=== PATIENT | female | born 1950 | race Caucasian/White ===

== ENCOUNTER 2022-06-02 17:03 | Observation (INO) ==
[2022-06-02] MEDS ORDERED: PROVENTIL NEB TX 0.083% 2.5MG/ 3ML ONE (19:28)
[2022-06-02 19:55] LABS: BASOPHILS # (AUTO) 0.1 X10^3/uL (0.0-0.1); BASOPHILS % (AUTO) 0.6 % (0.2-1.0); EOSINOPHILS # (AUTO) 0.2 x10^3/uL (0.0-0.2); EOSINOPHILS % (AUTO) 1.5 % (0.9-2.9); HEMATOCRIT 34.2 % (36.0-47.0); LYMPHOCYTES # (AUTO) 2.3 X10^3/uL (1.3-2.9); LYMPHOCYTES % (AUTO) 21.9 % (21.0-51.0); MEAN CORPUSCULAR HEMOGLOBIN 29.5 pg (27.0-34.0); MEAN CORPUSCULAR HGB CONC 35.2 g/dL (33.0-35.0); MEAN CORPUSCULAR VOLUME 83.8 fL (80.0-100.0); MEAN PLATELET VOLUME 6.6 fL (7.4-11.0); MONOCYTES % (AUTO) 9.3 % (0.0-13.0); NEUTROPHILS % (AUTO) 66.7 % (42.0-75.0); RED BLOOD COUNT 4.09 X10^6/uL (3.5-5.4); RED CELL DISTRIBUTION WIDTH 14.5 % (11.6-16.5); WHITE BLOOD COUNT 10.5 X10^3/uL (3.6-10.0)
[2022-06-02 20:09] LABS: ALANINE AMINOTRANSFERASE 21 Units/L (12-78); ALBUMIN 3.3 g/dL (3.4-5.0); ALKALINE PHOSPHATASE 104 Units/L (46-116); ASPARTATE AMINO TRANSFERASE 18 Units/L (15-37); BLOOD UREA NITROGEN 10 mg/dL (7-18); CALCIUM 8.7 mg/dL (8.5-10.1); CARBON DIOXIDE 26.5 mmol/L (21-32); CHLORIDE 100 mmol/L (98-107); COR CA(FOR HYPOALB) 9.3 mg/dL (8.5-10.1); COR NA(FOR HYPERGLY) 137 mmol/L (136-145); CREATININE 1.13 mg/dL (0.55-1.02); SODIUM 136 mmol/L (136-145); TOTAL PROTEIN 7.3 g/dL (6.4-8.2); eGFR NON BLACK RACES 50 (>60)
[2022-06-02] MEDS: PROVENTIL NEB TX 0.083% 2.5MG/ 3ML NEB SCH (20:15)
[2022-06-02] MEDS ORDERED: SALINE 3% 15 ML NEB TX NEB ONE (20:15)
[2022-06-02] MEDS: PULMICORT NEB TX 0.5 MG NEB SCH (20:15)
[2022-06-02] MEDS ORDERED: NS 1/2 1,000 ML IV 1,000 ML IV ONE (20:27)
[2022-06-02] MEDS: TESSALON PERLES PO SCH (21:11)
[2022-06-02] MEDS: NS 1/2 1,000 ML IV 1,000 ML IV SCH (21:11)
[2022-06-02] MEDS: ROBITUSSIN DM PO SCH (21:12)
[2022-06-02] MEDS: VSL#3 PO SCH (21:12)
[2022-06-02] MEDS: TUSSIONEX PENNKINETIC SUSP PO SCH (21:12)
[2022-06-02] MEDS ORDERED: LEVAQUIN PREMIX IV 500 MG 500 MG/100 ML BAG IV SCH (22:00)
--- NOTE | 2022-06-02 22:17 | RAD ---
HISTORYPNEUMONIASTUDYCHEST, PA/LAT ADULTCOMPARISONJanuary 2019TECHNIQUEPA and lateral projections, 2 imagesFINDINGSCardiac silhouette is normal in size and configuration.Pulmonary vascular sizes are normal.No effusion.No focal airspace disease.No pneumothorax.No acute osseous abnormalityIMPRESSIONNo imaging findings of acute cardiopulmonary disease.Electronically signed by: John Miller (Jun 02, 2022 22:15:28)
[2022-06-03 01:09] VITALS: BMI 30.9
[2022-06-03] MEDS ORDERED: NS 100 ML IV 100 ML ONE (05:27)
[2022-06-03] MEDS: TESSALON PERLES PO SCH ×3 (05:53→20:59)
[2022-06-03 06:40] LABS: ALANINE AMINOTRANSFERASE 15 Units/L (12-78); ALBUMIN 2.7 g/dL (3.4-5.0); ALKALINE PHOSPHATASE 87 Units/L (46-116); ASPARTATE AMINO TRANSFERASE 15 Units/L (15-37); BLOOD UREA NITROGEN 9 mg/dL (7-18); CALCIUM 8.4 mg/dL (8.5-10.1); CARBON DIOXIDE 27.7 mmol/L (21-32); CHLORIDE 101 mmol/L (98-107); COR CA(FOR HYPOALB) 9.4 mg/dL (8.5-10.1); CREATININE 0.92 mg/dL (0.55-1.02); SODIUM 135 mmol/L (136-145); TOTAL PROTEIN 6.3 g/dL (6.4-8.2); eGFR NON BLACK RACES > 60 (>60)
--- NOTE | 2022-06-03 07:16 | CT ---
HISTORYChronic cough, shortness of breathSTUDYCT chest with contrastTechnique: Axial post-contrast images with coronal and sagittal reformats. Dose reduction procedures were used with mA/kv adjusted for body size.COMPARISONNoneFINDINGSExamination of the mediastinum demonstrated a 1.5 by 1 cm right thyroid lobe nodule which should be further evaluated sonographically. No mediastinal or hilar adenopathy of significance is identified. No significant aortic abnormality is identified. There is a small hiatal hernia present. No pleural effusions are identified. No chest wall or axillary abnormality is identified. Those portions of the upper abdominal organs visualized were within normal limits with the exception of what appears to represent multiple enhancing splenic lesions.. These could be real findings and represent hemangiomas or could be flow anomalies. Splenic ultrasound is recommended for further evaluation. Examination of the lung colon demonstrated no significant masses, alveolar infiltrates, areas of consolidation, significant peribronchial thickening, or bronchiectasis. There is a focus of subsegmental atelectasis in the left lung base. Tiny subpleural pulmonary nodules identified on CT series 10, image 43 on the right this can be followed in 1 year.IMPRESSIONNo acute infiltrate2 mm subpleural right lung pulmonary nodule best visualized on CT series 10, image 43. Follow-up chest CT in 1 year is recommendedSmall hiatal hernia1.5 x 1 cm right thyroid lobe nodule requiring further evaluation with thyroid sonography.Electronically signed by: NELSON SALEH (Jun 03, 2022 07:15:23)
[2022-06-03 07:52] LABS: BASOPHILS # (AUTO) 0.1 X10^3/uL (0.0-0.1); BASOPHILS % (AUTO) 0.6 % (0.2-1.0); EOSINOPHILS # (AUTO) 0.2 x10^3/uL (0.0-0.2); EOSINOPHILS % (AUTO) 2.3 % (0.9-2.9); HEMATOCRIT 30.1 % (36.0-47.0); LYMPHOCYTES # (AUTO) 1.9 X10^3/uL (1.3-2.9); LYMPHOCYTES % (AUTO) 20.3 % (21.0-51.0); MEAN CORPUSCULAR HGB CONC 36.5 g/dL (33.0-35.0); MEAN CORPUSCULAR VOLUME 98.7 fL (80.0-100.0); MEAN PLATELET VOLUME 6.7 fL (7.4-11.0); MONOCYTES # (AUTO) 0.9 x10^3/uL (0.3-0.8); MONOCYTES % (AUTO) 9.9 % (0.0-13.0); NEUTROPHILS # (AUTO) 6.1 x10^3/uL (2.2-4.8); NEUTROPHILS % (AUTO) 66.9 % (42.0-75.0); RED BLOOD COUNT 3.05 X10^6/uL (3.5-5.4); RED CELL DISTRIBUTION WIDTH 14.6 % (11.6-16.5); WHITE BLOOD COUNT 9.1 X10^3/uL (3.6-10.0)
[2022-06-03] MEDS ORDERED: PULMICORT NEB TX 0.5 MG NEB ONE (07:56)
[2022-06-03] MEDS ORDERED: PROVENTIL NEB TX 0.083% 2.5MG/ 3ML ONE (07:56)
[2022-06-03] MEDS: PROVENTIL NEB TX 0.083% 2.5MG/ 3ML NEB SCH ×4 (08:03→21:00)
[2022-06-03] MEDS: PULMICORT NEB TX 0.5 MG NEB SCH ×2 (08:03→20:59)
[2022-06-03] MEDS: ROBITUSSIN DM PO SCH ×4 (09:26→20:37)
[2022-06-03] MEDS: TUSSIONEX PENNKINETIC SUSP PO SCH ×2 (09:26→20:37)
[2022-06-03] MEDS: VSL#3 PO SCH (09:27)
--- NOTE | 2022-06-03 12:49 | DR.UPDATE ---
H&P Update History and Physical Update: History and Physical reviewed and patient examined. Changes noted: Yes with the following: WAS ADMITTED FOR TREATMENT OF BRONCHOPNEUMONIA, PERSISTENT COUGH. PATIENT REPORTS HAVING PRODUCTIVE COUGH, CHEST CONGESTION, CHEST TIGHTNESS, WHEEZING RIB PAIN, DIZZINESS, AND WEAKNESS FOR THE PAST TWO MONTHS. SHE HAS TAKEN CEFDINIR 300MG PO BID X 10 DAYS, LEVAQUIN 500MG DAILY X 10 DAYS, CIPRO 500MG PO BID X 7 DAYS, PREDNISONE TAPER WITHOUT IMPROVEMENT IN SYMPTOMS. SHE HAS ALSO HAD MULTIPLE INJECTIONS IN THE OFFICE. WE ADMITTED PATIENT FOR FURTHER EVALUATION AND TREATMENT. ON ARRIVAL, VITALS WERE: 97.7-100-20-97%-135/67. LABS WERE OBTAINED. WBC 10.5, HGB 12.0, HCT 34.2, SODIUM 136, POTASSIUM 3.7, CHLORIDE 100, BUN 10, CREATININE 1.13, GLUCOSE 123, AST 18, ALT 21, ALK PHOS 104, TOTAL PROTEIN 7.3, ALBUMIN 3.3. COVID, INFLUENZA, AND RSV NEGATIVE. BLOOD AND SPUTUM CULTURES WERE SET UP. A CHEST CT WITH CONTRAST WAS OBTAINED. IT REVEALED: Examination of the mediastinum demonstrated a 1.5 by 1 cm right thyroid lobe nodule which should be further evaluated sonographically. No mediastinal or hilar adenopathy of significance is identified. No significant aortic abnormality is identified. There is a small hiatal hernia present. No pleural effusions are identified. No chest wall or axillary abnormality is identified. Those portions of the upper abdominal organs visualized were within normal limits with the exception of what appears to represent multiple enhancing splenic lesions. These could be real findings and represent hemangiomas or could be flow anomalies. Splenic ultrasound is recommended for further evaluation. Examination of the lung colon demonstrated no significant masses, alveolar infiltrates, areas of consolidation, significant peribronchial thickening, or bronchiectasis. There is a focus of subsegmental atelectasis in the left lung base. Tiny subpleural pulmonary nodules identified on CT series 10, image 43 on the right this can be followed in 1 year. SHE WAS STARTED ON NORMAL SALINE AT 75 ML/HR, LEVAQUIN 750MG IV Q48H, TUSSIONEX 5ML PO Q12H, ROBITUSSIN DM 10ML PO QID, PULMICORT NEBS BID, PROVENTIL NEBS QID, ROBITUSSIN DM 10ML PO QID, TESSALON PERLES 200MG PO TID, AND HER HOME MEDICATIONS WITH THE EXCEPTION OF THE [place] WERE RESUMED. ULTRASOUND IS DOWN UNTIL NEXT WEEK, THEREFORE, WE WILL OBTAIN OUTPATIENT THYROID AND SPLEENIC ULTRASOUNDS ON AN OUTPATIENT BASIS DUE TO CT CONCERNS. OTHERWISE WE WILL FOLLOW-UP WITH AM LABS AND CONTINUE TO MONITOR. TIME SPENT ON CLINICAL ASSESSMENT, REVIWING LABS AND IMAGING, DECISION MAKING, AND DOCUMENTATION GREATER THAN 75 MINUTES.
[2022-06-03] MEDS: NS 1/2 1,000 ML IV 1,000 ML IV SCH ×2 (13:28→20:40)
[2022-06-03] MEDS: CRESTOR TAB 10 MG PO SCH (20:37)
[2022-06-03] MEDS: SINGULAIR TAB 10 MG PO SCH (20:38)
[2022-06-03] MEDS ORDERED: NS 1/2 1,000 ML IV 1,000 ML IV ONE (20:39)
[2022-06-04] MEDS: ROBITUSSIN DM PO SCH ×4 (01:45→21:12)
[2022-06-04] MEDS: TESSALON PERLES PO SCH ×3 (05:42→21:11)
[2022-06-04 06:25] LABS: BASOPHILS % (AUTO) 0.4 % (0.2-1.0); EOSINOPHILS # (AUTO) 0.2 x10^3/uL (0.0-0.2); HEMATOCRIT 28.7 % (36.0-47.0); HEMOGLOBIN 10.4 g/dL (12.0-16.0); LYMPHOCYTES # (AUTO) 2.3 X10^3/uL (1.3-2.9); LYMPHOCYTES % (AUTO) 22.6 % (21.0-51.0); MEAN CORPUSCULAR HEMOGLOBIN 38.4 pg (27.0-34.0); MEAN CORPUSCULAR HGB CONC 36.4 g/dL (33.0-35.0); MEAN CORPUSCULAR VOLUME 105.6 fL (80.0-100.0); MONOCYTES # (AUTO) 0.9 x10^3/uL (0.3-0.8); MONOCYTES % (AUTO) 9.2 % (0.0-13.0); NEUTROPHILS # (AUTO) 6.5 x10^3/uL (2.2-4.8); NEUTROPHILS % (AUTO) 65.8 % (42.0-75.0); RED BLOOD COUNT 2.72 X10^6/uL (3.5-5.4); RED CELL DISTRIBUTION WIDTH 14.3 % (11.6-16.5); WHITE BLOOD COUNT 9.9 X10^3/uL (3.6-10.0)
[2022-06-04 06:27] LABS: ALANINE AMINOTRANSFERASE 17 Units/L (12-78); ALBUMIN 2.8 g/dL (3.4-5.0); ALKALINE PHOSPHATASE 83 Units/L (46-116); ASPARTATE AMINO TRANSFERASE 16 Units/L (15-37); BLOOD UREA NITROGEN 8 mg/dL (7-18); CALCIUM 8.4 mg/dL (8.5-10.1); CARBON DIOXIDE 26.9 mmol/L (21-32); CHLORIDE 102 mmol/L (98-107); COR CA(FOR HYPOALB) 9.4 mg/dL (8.5-10.1); CREATININE 0.92 mg/dL (0.55-1.02); SODIUM 135 mmol/L (136-145); TOTAL PROTEIN 6.2 g/dL (6.4-8.2); eGFR NON BLACK RACES > 60 (>60)
[2022-06-04 06:56] LABS: PLATELET MORPHOLOGY COMMENT NORMAL (NORMAL)
[2022-06-04] MEDS ORDERED: NS 1/2 1,000 ML IV 1,000 ML IV ONE ×2 (08:05→23:59)
[2022-06-04] MEDS: PULMICORT NEB TX 0.5 MG NEB SCH ×2 (08:09→20:00)
[2022-06-04] MEDS: PROVENTIL NEB TX 0.083% 2.5MG/ 3ML NEB SCH ×4 (08:09→20:00)
[2022-06-04] MEDS: NS 1/2 1,000 ML IV 1,000 ML IV SCH ×3 (08:30→23:58)
[2022-06-04] MEDS: VSL#3 PO SCH (08:31)
[2022-06-04] MEDS: TUSSIONEX PENNKINETIC SUSP PO SCH ×2 (08:31→21:10)
[2022-06-04] MEDS: LEVAQUIN PREMIX IV 750 MG 750 MG/150 ML BAG IV SCH (08:31)
--- NOTE | 2022-06-04 10:24 | PCM.PROG ---
Progress Note Progress Note for Day of Date of Exam: 06/04/22 Subjective Subjective: PT IS A 72 YEAR OLD FEMALE ADMITTED FOR TREATMENT OF BRONCHOPNEUMONIA, PERSISTENT COUGH AFTER FAILING EXTENSIVE OUTPATIENT TREATMENT. THIS MORNING SHE IS RESTING IN BED COMFORTABLY. SHE REPORTS SOME IMPROVEMENT IN HER BREATHING AND SYMPTOMS. NO ACUTE EVENTS OVERNIGHT. LABS/IMAGING: WBC 9.9, HGB 10.4, PLT 328, NA 135, K 4.1, CREATININE 0.92, GLUCOSE 96, BLOOD AND SPUTUM CULTURES WERE SET UP. A CHEST CT WITH CONTRAST WAS OBTAINED. IT REVEALED: Examination of the mediastinum demonstrated a 1.5 by 1 cm right thyroid lobe nodule which should be further evaluated sonographically. No mediastinal or hilar adenopathy of significance is identified. No significant aortic abnormality is identified. There is a small hiatal hernia present. No pleural effusions are identified. No chest wall or axillary abnormality is identified. Those portions of the upper abdominal organs visualized were within normal limits with the exception of what appears to represent multiple enhancing splenic lesions. These could be real findings and represent hemangiomas or could be flow anomalies. Splenic ultrasound is recommended for further evaluation. Examination of the lung colon demonstrated no significant masses, alveolar infiltrates, areas of consolidation, significant peribronchial thickening, or bronchiectasis. There is a focus of subsegmental atelectasis in the left lung base. Tiny subpleural pulmonary nodules identified on CT series 10, image 43 on the right this can be followed in 1 year. SHE IS CURRENTLY RECEIVING NORMAL SALINE AT 75 ML/HR, LEVAQUIN 750MG IV Q48H, TUSSIONEX 5ML PO Q12H, ROBITUSSIN DM 10ML PO QID, PULMICORT NEBS BID, PROVENTIL NEBS QID, ROBITUSSIN DM 10ML PO QID, TESSALON PERLES 200MG PO TID, AND HER HOME MEDICATIONS WITH THE EXCEPTION OF THE [place] WERE RESUMED. ULTRASOUND IS DOWN UNTIL NEXT WEEK, THEREFORE, WE WILL OBTAIN OUTPATIENT THYROID AND SPLEENIC ULTRASOUNDS ON AN OUTPATIENT BASIS DUE TO CT CONCERNS. OTHERWISE WE WILL FOLLOW-UP WITH AM LABS AND CONTINUE TO MONITOR. TIME SPENT ON CLINICAL ASSESSMENT, REVIWING LABS AND IMAGING, DECISION MAKING, AND DOCUMENTATION GREATER THAN 45 MINUTES. Past Medical Family Social History Past Med/Fam/Surg Hx: No changes since H&P Allergies: Allergies No Known Drug Allergies Allergy (Verified 08/29/20 08:18) Review of Systems ROS: No change since H&P Vital Signs and I&O's Vital Signs: Temperature 97.8 F Pulse Rate [Brachial] 70 Pulse Rate 82 Respiratory Rate 18 Blood Pressure [Right Arm] 169/77 Blood Pressure [Left Arm] 158/68 Blood Pressure 186/81 O2 Sat by Pulse Oximetry 98 Intake and Output: Intake & Output 06/01/22 06/02/22 06/03/22 06/04/22 23:59 23:59 23:59 23:59 Intake Total 275 / 275 1807 / 1807 150 / 150 Balance 275 / 275 1807 / 1807 150 / 150 Physical Exam Oriented: Normal Eyes: Normal Nose: Normal Throat: Normal Respiratory: Rhonchi Cardiovascular: Normal Palpation: Normal Tenderness: Normal Skin: Normal Musculoskeletal: Normal Psychiatric: Normal Mood Description: Calm Speech Pattern: Clear and Appropriate Laboratory and Diagnostics Result Diagrams: 06/04/22 05:39 06/04/22 05:39 Labs: 06/02/22 20:45 Sputum - Expectorated Sputum Sputum Culture - Final 06/02/22 20:45 Sputum - Expectorated Sputum - Final 06/02/22 19:44 Blood Blood Culture - Preliminary 06/02/22 19:40 Blood Blood Culture - Preliminary Laboratory WBC 9.9 X10^3/uL (3.6-10.0) 06/04/22 05:39 RBC 2.72 X10^6/uL (3.5-5.4) L 06/04/22 05:39 Hgb 10.4 g/dL (12.0-16.0) L 06/04/22 05:39 Hct 28.7 % (36.0-47.0) L 06/04/22 05:39 MCV 105.6 fL (80.0-100.0) H 06/04/22 05:39 MCH 38.4 pg (27.0-34.0) H 06/04/22 05:39 MCHC 36.4 g/dL (33.0-35.0) H 06/04/22 05:39 RDW 14.3 % (11.6-16.5) 06/04/22 05:39 Plt Count 328 X10^3/uL (150.0-450.0) 06/04/22 05:39 Plt Count Comment Adequate (ADEQUATE) 06/04/22 05:39 MPV 7.0 fL (7.4-11.0) L 06/04/22 05:39 Neut % (Auto) 65.8 % (42.0-75.0) 06/04/22 05:39 Lymph % (Auto) 22.6 % (21.0-51.0) 06/04/22 05:39 [place] % (Auto) 9.2 % (0.0-13.0) 06/04/22 05:39 Eos % (Auto) 2.0 % (0.9-2.9) 06/04/22 05:39 Baso % (Auto) 0.4 % (0.2-1.0) 06/04/22 05:39 Neut # (Auto) 6.5 x10^3/uL (2.2-4.8) H 06/04/22 05:39 Lymph # (Auto) 2.3 X10^3/uL (1.3-2.9) 06/04/22 05:39 [place] # (Auto) 0.9 x10^3/uL (0.3-0.8) H 06/04/22 05:39 Eos # (Auto) 0.2 x10^3/uL (0.0-0.2) 06/04/22 05:39 Baso # (Auto) 0.0 X10^3/uL (0.0-0.1) 06/04/22 05:39 Absolute Nucleated RBC 0.1 /100WBC 06/04/22 05:39 Plt Morphology Comment Normal (NORMAL) 06/04/22 05:39 RBC Morphology Abnormal (NORMAL) A 06/04/22 05:39 Macrocytosis 1+ A 06/04/22 05:39 Sodium 135 mmol/L (136-145) L 06/04/22 05:39 Corrected Sodium TNP 06/04/22 05:39 Potassium 4.1 mmol/L (3.5-5.1) 06/04/22 05:39 Chloride 102 mmol/L (98-107) 06/04/22 05:39 Carbon Dioxide 26.9 mmol/L (21-32) 06/04/22 05:39 BUN 8 mg/dL (7-18) 06/04/22 05:39 Creatinine 0.92 mg/dL (0.55-1.02) 06/04/22 05:39 Est GFR (MDRD) Af Amer > 60 (>60) 06/04/22 05:39 Est GFR (MDRD) Non-Af > 60 (>60) 06/04/22 05:39 Glucose 96 mg/dL (65-99) 06/04/22 05:39 Calcium 8.4 mg/dL (8.5-10.1) L 06/04/22 05:39 Corrected Calcium 9.4 mg/dL (8.5-10.1) 06/04/22 05:39 Total Bilirubin 0.20 mg/dL (0.2-1.0) 06/04/22 05:39 AST 16 Units/L (15-37) 06/04/22 05:39 ALT 17 Units/L (12-78) 06/04/22 05:39 Alkaline Phosphatase 83 Units/L (46-116) 06/04/22 05:39 Total Protein 6.2 g/dL (6.4-8.2) L 06/04/22 05:39 Albumin 2.8 g/dL (3.4-5.0) L 06/04/22 05:39 Globulin 3.4 g/dL (2.5-4.5) 06/04/22 05:39 Albumin/Globulin Ratio 0.8 Ratio (1.1-2.1) L 06/04/22 05:39 SARS-CoV-2 (PCR) Negative (NEGATIVE) 06/02/22 21:28 Influenza Type A (PCR) Negative (NEGATIVE) 06/02/22 21:28 Influenza Type B (PCR) Negative (NEGATIVE) 06/02/22 21:28 RSV (PCR) Negative (NEGATIVE) 06/02/22 21:28 Plan (1) Bronchopneumonia: Status: Acute Plan: IV abx
[2022-06-04] MEDS: SINGULAIR TAB 10 MG PO SCH (21:10)
[2022-06-04] MEDS: CRESTOR TAB 10 MG PO SCH (21:12)
[2022-06-05] MEDS: TESSALON PERLES PO SCH ×3 (05:22→21:47)
[2022-06-05] MEDS: NS 1/2 1,000 ML IV 1,000 ML IV SCH ×3 (05:22→17:14)
[2022-06-05 06:11] LABS: BASOPHILS # (AUTO) 0.1 X10^3/uL (0.0-0.1); BASOPHILS % (AUTO) 0.7 % (0.2-1.0); EOSINOPHILS # (AUTO) 0.2 x10^3/uL (0.0-0.2); EOSINOPHILS % (AUTO) 1.8 % (0.9-2.9); HEMATOCRIT 28.8 % (36.0-47.0); HEMOGLOBIN 9.9 g/dL (12.0-16.0); LYMPHOCYTES # (AUTO) 2.5 X10^3/uL (1.3-2.9); LYMPHOCYTES % (AUTO) 25.2 % (21.0-51.0); MEAN CORPUSCULAR HEMOGLOBIN 28.5 pg (27.0-34.0); MEAN CORPUSCULAR HGB CONC 34.4 g/dL (33.0-35.0); MEAN CORPUSCULAR VOLUME 82.8 fL (80.0-100.0); MONOCYTES # (AUTO) 0.8 x10^3/uL (0.3-0.8); MONOCYTES % (AUTO) 8.2 % (0.0-13.0); NEUTROPHILS # (AUTO) 6.4 x10^3/uL (2.2-4.8); NEUTROPHILS % (AUTO) 64.1 % (42.0-75.0); RED BLOOD COUNT 3.47 X10^6/uL (3.5-5.4); RED CELL DISTRIBUTION WIDTH 14.8 % (11.6-16.5)
[2022-06-05 06:32] LABS: ALANINE AMINOTRANSFERASE 15 Units/L (12-78); ALBUMIN 2.6 g/dL (3.4-5.0); ALKALINE PHOSPHATASE 78 Units/L (46-116); ASPARTATE AMINO TRANSFERASE 16 Units/L (15-37); BLOOD UREA NITROGEN 6 mg/dL (7-18); CALCIUM 8.4 mg/dL (8.5-10.1); CARBON DIOXIDE 25.7 mmol/L (21-32); CHLORIDE 103 mmol/L (98-107); COR CA(FOR HYPOALB) 9.5 mg/dL (8.5-10.1); CREATININE 0.89 mg/dL (0.55-1.02); SODIUM 135 mmol/L (136-145); TOTAL PROTEIN 5.9 g/dL (6.4-8.2); eGFR NON BLACK RACES > 60 (>60)
[2022-06-05] MEDS: PULMICORT NEB TX 0.5 MG NEB SCH ×2 (08:12→21:00)
[2022-06-05] MEDS: PROVENTIL NEB TX 0.083% 2.5MG/ 3ML NEB SCH ×4 (08:12→21:00)
[2022-06-05] MEDS: VSL#3 PO SCH (08:47)
[2022-06-05] MEDS: ROBITUSSIN DM PO SCH ×4 (08:47→20:43)
[2022-06-05] MEDS: TUSSIONEX PENNKINETIC SUSP PO SCH ×2 (08:47→20:42)
--- NOTE | 2022-06-05 11:27 | PCM.PROG ---
Progress Note Progress Note for Day of Date of Exam: 06/05/22 Subjective Subjective: PT IS A 72 YEAR OLD FEMALE ADMITTED FOR TREATMENT OF BRONCHOPNEUMONIA, PERSISTENT COUGH AFTER FAILING EXTENSIVE OUTPATIENT TREATMENT. THIS MORNING SHE IS RESTING IN BED COMFORTABLY. HER BREATHING CONTINUES TO IMPROVE. NO ACUTE EVENTS OVERNIGHT. SHE IS CURRENTLY ON ROOM AIR. LABS/IMAGING: WBC 10, HGB 9.9, PLT 312, NA 135, K 3.9, CREATININE 0.89, GLUCOSE 91, BLOOD NGTD, AND SPUTUM CULTURES NORMAL TANJA. A CHEST CT WITH CONTRAST WAS OBTAINED. IT REVEALED: Examination of the mediastinum demonstrated a 1.5 by 1 cm right thyroid lobe nodule which should be further evaluated sonographically. No mediastinal or hilar adenopathy of significance is identified. No significant aortic abnormality is identified. There is a small hiatal hernia present. No pleural effusions are identified. No chest wall or axillary abnormality is identified. Those portions of the upper abdominal organs visualized were within normal limits with the exception of what appears to represent multiple enhancing splenic lesions. These could be real findings and represent hemangiomas or could be flow anomalies. Splenic ultrasound is recommended for further evaluation. Examination of the lung colon demonstrated no significant masses, alveolar infiltrates, areas of consolidation, significant peribronchial thickening, or bronchiectasis. There is a focus of subsegmental atelectasis in the left lung base. Tiny subpleural pulmonary nodules identified on CT series 10, image 43 on the right this can be followed in 1 year. SHE IS CURRENTLY RECEIVING NORMAL SALINE AT 75 ML/HR, LEVAQUIN 750MG IV Q48H, TUSSIONEX 5ML PO Q12H, ROBITUSSIN DM 10ML PO QID, PULMICORT NEBS BID, PROVENTIL NEBS QID, ROBITUSSIN DM 10ML PO QID, TESSALON PERLES 200MG PO TID, AND HER HOME MEDICATIONS WITH THE EXCEPTION OF THE [place] WERE RESUMED. ORDERED ULTRASOUND DUE TO CT CONCERNS. OTHERWISE WE WILL FOLLOW-UP WITH AM LABS AND CONTINUE TO MONITOR. TIME SPENT ON CLINICAL ASSESSMENT, REVIWING LABS AND IMAGING, DECISION MAKING, AND DOCUMENTATION GREATER THAN 45 MINUTES. Past Medical Family Social History Past Med/Fam/Surg Hx: No changes since H&P Allergies: Allergies No Known Drug Allergies Allergy (Verified 08/29/20 08:18) Review of Systems ROS: No change since H&P Vital Signs and I&O's Vital Signs: Temperature 98.5 F Pulse Rate [Brachial] 76 Pulse Rate 87 Respiratory Rate 18 Blood Pressure [Right Arm] 139/67 Blood Pressure [Left Arm] 158/68 Blood Pressure 186/81 O2 Sat by Pulse Oximetry 98 Intake and Output: Intake & Output 06/02/22 06/03/22 06/04/22 06/05/22 23:59 23:59 23:59 23:59 Intake Total 275 / 275 1807 / 1807 1590 / 1590 655 / 655 Balance 275 / 275 1807 / 1807 1590 / 1590 655 / 655 Physical Exam Oriented: Normal Eyes: Normal Nose: Normal Throat: Normal Respiratory: Rhonchi Cardiovascular: Normal Tenderness: Normal Skin: Normal Musculoskeletal: Normal Psychiatric: Normal Mood Description: Calm Speech Pattern: Clear and Appropriate Laboratory and Diagnostics Result Diagrams: 06/05/22 05:25 06/05/22 05:25 Labs: 06/02/22 20:45 Sputum - Expectorated Sputum Sputum Culture - Final 06/02/22 20:45 Sputum - Expectorated Sputum - Final 06/02/22 19:44 Blood Blood Culture - Preliminary 06/02/22 19:40 Blood Blood Culture - Preliminary Laboratory WBC 10.0 X10^3/uL (3.6-10.0) 06/05/22 05:25 RBC 3.47 X10^6/uL (3.5-5.4) L 06/05/22 05:25 Hgb 9.9 g/dL (12.0-16.0) L 06/05/22 05:25 Hct 28.8 % (36.0-47.0) L 06/05/22 05:25 MCV 82.8 fL (80.0-100.0) 06/05/22 05:25 MCH 28.5 pg (27.0-34.0) 06/05/22 05:25 MCHC 34.4 g/dL (33.0-35.0) 06/05/22 05:25 RDW 14.8 % (11.6-16.5) 06/05/22 05:25 Plt Count 312 X10^3/uL (150.0-450.0) 06/05/22 05:25 Plt Count Comment Adequate (ADEQUATE) 06/04/22 05:39 MPV 7.0 fL (7.4-11.0) L 06/05/22 05:25 Neut % (Auto) 64.1 % (42.0-75.0) 06/05/22 05:25 Lymph % (Auto) 25.2 % (21.0-51.0) 06/05/22 05:25 [place] % (Auto) 8.2 % (0.0-13.0) 06/05/22 05:25 Eos % (Auto) 1.8 % (0.9-2.9) 06/05/22 05:25 Baso % (Auto) 0.7 % (0.2-1.0) 06/05/22 05:25 Neut # (Auto) 6.4 x10^3/uL (2.2-4.8) H 06/05/22 05:25 Lymph # (Auto) 2.5 X10^3/uL (1.3-2.9) 06/05/22 05:25 [place] # (Auto) 0.8 x10^3/uL (0.3-0.8) 06/05/22 05:25 Eos # (Auto) 0.2 x10^3/uL (0.0-0.2) 06/05/22 05:25 Baso # (Auto) 0.1 X10^3/uL (0.0-0.1) 06/05/22 05:25 Absolute Nucleated RBC 0.0 /100WBC 06/05/22 05:25 Plt Morphology Comment Normal (NORMAL) 06/04/22 05:39 RBC Morphology Abnormal (NORMAL) A 06/04/22 05:39 Macrocytosis 1+ A 06/04/22 05:39 Sodium 135 mmol/L (136-145) L 06/05/22 05:25 Corrected Sodium TNP 06/05/22 05:25 Potassium 3.9 mmol/L (3.5-5.1) 06/05/22 05:25 Chloride 103 mmol/L (98-107) 06/05/22 05:25 Carbon Dioxide 25.7 mmol/L (21-32) 06/05/22 05:25 BUN 6 mg/dL (7-18) L 06/05/22 05:25 Creatinine 0.89 mg/dL (0.55-1.02) 06/05/22 05:25 Est GFR (MDRD) Af Amer > 60 (>60) 06/05/22 05:25 Est GFR (MDRD) Non-Af > 60 (>60) 06/05/22 05:25 Glucose 91 mg/dL (65-99) 06/05/22 05:25 Calcium 8.4 mg/dL (8.5-10.1) L 06/05/22 05:25 Corrected Calcium 9.5 mg/dL (8.5-10.1) 06/05/22 05:25 Total Bilirubin 0.30 mg/dL (0.2-1.0) 06/05/22 05:25 AST 16 Units/L (15-37) 06/05/22 05:25 ALT 15 Units/L (12-78) 06/05/22 05:25 Alkaline Phosphatase 78 Units/L (46-116) 06/05/22 05:25 Total Protein 5.9 g/dL (6.4-8.2) L 06/05/22 05:25 Albumin 2.6 g/dL (3.4-5.0) L 06/05/22 05:25 Globulin 3.3 g/dL (2.5-4.5) 06/05/22 05:25 Albumin/Globulin Ratio 0.8 Ratio (1.1-2.1) L 06/05/22 05:25 SARS-CoV-2 (PCR) Negative (NEGATIVE) 06/02/22 21:28 Influenza Type A (PCR) Negative (NEGATIVE) 06/02/22 21:28 Influenza Type B (PCR) Negative (NEGATIVE) 06/02/22 21:28 RSV (PCR) Negative (NEGATIVE) 06/02/22 21:28 Plan (1) Bronchopneumonia: Status: Acute Plan: IV abx
[2022-06-05] MEDS ORDERED: NS 1/2 1,000 ML IV 1,000 ML IV ONE (12:50)
[2022-06-05] MEDS: SINGULAIR TAB 10 MG PO SCH (20:43)
[2022-06-05] MEDS: CRESTOR TAB 10 MG PO SCH (20:44)
--- NOTE | 2022-06-05 21:57 | US ---
HISTORYTHYROID NODULESTUDYTHYROIDCOMPARISONNo relevant prior studies available.TECHNIQUEGrayscale images of the thyroid gland were reviewed.FINDINGSRight lobe:Measures 4.11 x 2.10 x 2.48 cm.Normal appearance of the parenchyma.No solid nodules.Two cysts in the right thyroid lobe measuring 1.5 x 1.3 x 1.1 cm and 0.9 x 0.55 x 0.83 cm.Left lobe:Measures 4.46 x 1.76 x 1.28 cm.Normal appearance of the parenchyma.No solid nodules identified.Multiple left thyroid cysts with the largest 2 measuring 0.92 x 0.58 x 0.69 cm and 0.74 x 0.51 x 0.82 cm.Isthmus:Measures 6.2 mm in width.No nodules.IMPRESSIONNoclinically significant thyroid nodules identified based on TI-RADS criteria.Electronically signed by: John Miller (Jun 05, 2022 21:56:24)
[2022-06-06] MEDS ORDERED: NS 1/2 1,000 ML IV 1,000 ML IV ONE (03:25)
[2022-06-06] MEDS: NS 1/2 1,000 ML IV 1,000 ML IV SCH ×2 (03:31→08:39)
[2022-06-06 04:18] VITALS: BP 144/63
[2022-06-06] MEDS: TESSALON PERLES PO SCH (05:16)
[2022-06-06 06:08] LABS: ALANINE AMINOTRANSFERASE 16 Units/L (12-78); ALBUMIN 2.6 g/dL (3.4-5.0); ALKALINE PHOSPHATASE 82 Units/L (46-116); ASPARTATE AMINO TRANSFERASE 17 Units/L (15-37); BLOOD UREA NITROGEN 7 mg/dL (7-18); CALCIUM 8.5 mg/dL (8.5-10.1); CARBON DIOXIDE 26.7 mmol/L (21-32); CHLORIDE 103 mmol/L (98-107); COR CA(FOR HYPOALB) 9.6 mg/dL (8.5-10.1); CREATININE 0.82 mg/dL (0.55-1.02); SODIUM 137 mmol/L (136-145); TOTAL PROTEIN 6.1 g/dL (6.4-8.2); eGFR NON BLACK RACES > 60 (>60)
[2022-06-06 06:27] LABS: BASOPHILS # (AUTO) 0.1 X10^3/uL (0.0-0.1); BASOPHILS % (AUTO) 0.9 % (0.2-1.0); EOSINOPHILS # (AUTO) 0.2 x10^3/uL (0.0-0.2); HEMATOCRIT 29.7 % (36.0-47.0); HEMOGLOBIN 10.2 g/dL (12.0-16.0); LYMPHOCYTES # (AUTO) 2.5 X10^3/uL (1.3-2.9); LYMPHOCYTES % (AUTO) 22.4 % (21.0-51.0); MEAN CORPUSCULAR HGB CONC 34.5 g/dL (33.0-35.0); MEAN PLATELET VOLUME 6.9 fL (7.4-11.0); MONOCYTES # (AUTO) 0.9 x10^3/uL (0.3-0.8); MONOCYTES % (AUTO) 7.8 % (0.0-13.0); NEUTROPHILS # (AUTO) 7.5 x10^3/uL (2.2-4.8); NEUTROPHILS % (AUTO) 66.9 % (42.0-75.0); RED BLOOD COUNT 3.67 X10^6/uL (3.5-5.4); RED CELL DISTRIBUTION WIDTH 14.6 % (11.6-16.5); WHITE BLOOD COUNT 11.1 X10^3/uL (3.6-10.0)
[2022-06-06] MEDS: PULMICORT NEB TX 0.5 MG NEB SCH (08:24)
[2022-06-06] MEDS: PROVENTIL NEB TX 0.083% 2.5MG/ 3ML NEB SCH (08:24)
[2022-06-06] MEDS: ROBITUSSIN DM PO SCH (08:39)
[2022-06-06] MEDS: VSL#3 PO SCH (08:39)
[2022-06-06] MEDS: TUSSIONEX PENNKINETIC SUSP PO SCH (08:39)
[2022-06-06] MEDS: LEVAQUIN PREMIX IV 750 MG 750 MG/150 ML BAG IV SCH (08:40)
== END 2022-06-06 11:00 | disposition home or self-care (01) ==
LOC: MED/SURG
PROVIDERS: ADMIT Internal Medicine; ATTEND Internal Medicine
DX: E04.1 Nontoxic single thyroid nodule; J18.0 Bronchopneumonia, unspecified organism; Z20.822 Contact with and (suspected) exposure to COVID-19; K44.9 Diaphragmatic hernia without obstruction or gangrene; R42 Dizziness and giddiness